=== PATIENT | female | born 1965 | race Caucasian/White ===

== ENCOUNTER 2019-12-19 08:16 | Outpatient (CLI) | payer MEDICAID, SELFPAY ==
--- NOTE | 2019-12-19 08:23 | MM_ITS ---
WS: [id number] BILATERAL DIGITAL SCREENING MAMMOGRAPHY WITH CAD CLINICAL INFORMATION: SCREEN HISTORY: Screening mammogram. No current complaints. COMPARISON: TECHNIQUE: Bilateral CC and MLO views. FINDINGS: Scattered fibroglandular densities bilaterally. No suspicious focal mass, asymmetry, calcifications, or architectural distortion. No evidence of malignancy. MM/[id number] IMPRESSION: BI-RADS: 1-Negative FOLLOW UP: 1 Year Follow-up Recommend return to annual screening mammography.
== END 2019-12-19 08:17 | disposition home or self-care (01) ==
LOC: RADSHAW 08:16
PROVIDERS: PCP Physician Assistant; Visit Provider Physician Assistant
DX: Z12.31 Encounter for screening mammogram for malignant neoplasm of breast (principal)
CPT/HCPCS: 77067

== ENCOUNTER 2021-01-26 08:14 | Outpatient (CLI) | payer MEDICAID, SELFPAY ==
--- NOTE | 2021-01-26 08:19 | MM_ITS ---
WS: [id number] Exam: [id number] Date/Time of Exam: 01/26/2021 8:47 AM Reason For Exam: SCREENING VIEWS: MLO and CC views both breasts. Comparison made with prior exam of 10/10/2014, 10/28/2017 and 12/19/2019. Findings: There was no sign of mass, architectural distortion or suspicious calcification in either breast. Sc attered fibroglandular densities MM/[id number] Impression: BI-RADS: 2-Benign FOLLOW-UP: 1 Year Follow-up This mammogram was also analyzed by the Computer Aided Detection System R2 Imag e Nut Grinder.
== END 2021-01-26 08:15 | disposition home or self-care (01) ==
PROVIDERS: PCP Physician Assistant; Visit Provider Physician Assistant
DX: Z12.31 Encounter for screening mammogram for malignant neoplasm of breast (principal)
CPT/HCPCS: 77067

== ENCOUNTER 2022-03-15 07:32 | Outpatient (CLI) | payer MEDICAID, SELFPAY ==
--- NOTE | 2022-03-15 07:38 | MM_ITS ---
WS: [id number] Bilateral screening 3D tomosynthesis digital mammogram, 03/15/2022 Clinical Data: SCREENING Comparison: 01/26/2021, 12/19/2019, 11/09/2018, 10/28/2017, 10/22/2016, 10/14/2015, 10/10/2014, 09/03/2013, 08/04, 06/20/2009. Findings: The breast parenchymal pattern shows fibroglandular tissue No spiculated masses or clustered calcific ations are seen. There are no secondary signs of carcinoma. MM/[place] [id number] Impression: 1. Negative bilateral mammogram unchanged. 2. Recommend annual screening mammograms. BIRADS: 1-Negative FOLLOW UP: 1 Year Follow-up The CAD fruit checker was used.
== END 2022-03-15 07:33 | disposition home or self-care (01) ==
LOC: RAD 07:32
PROVIDERS: PCP Physician Assistant; Visit Provider Physician Assistant
DX: Z12.31 Encounter for screening mammogram for malignant neoplasm of breast (principal)
CPT/HCPCS: 77063; 77067

== ENCOUNTER → 2022-03-18 09:48 | Outpatient (BNVA) | payer MEDICAID, SELFPAY | PROVIDERS: PCP Physician Assistant; Visit Provider Internal Medicine Cardiovascular Disease | DX: I10 Essential (primary) hypertension (principal); E78.5 Hyperlipidemia, unspecified; Z87.891 Personal history of nicotine dependence | CPT/HCPCS: 93005; 99214 ==

== ENCOUNTER → 2023-03-17 11:17 | Outpatient (BNVA) | payer MEDICAID, SELFPAY | PROVIDERS: PCP Physician Assistant; Visit Provider Internal Medicine Cardiovascular Disease | DX: R07.89 Other chest pain (principal); E78.5 Hyperlipidemia, unspecified; I10 Essential (primary) hypertension; R00.2 Palpitations; Z87.891 Personal history of nicotine dependence | CPT/HCPCS: 99214 ==

== ENCOUNTER 2023-03-22 08:15 | Outpatient (CLI) | payer MEDICAID, SELFPAY ==
--- NOTE | 2023-03-22 08:50 | MM_ITS ---
WS: [id number] Bilateral screening 3D tomosynthesis digital mammogram, 03/22/2023 Clinical Data: SCREEN Comparison: 03/15/2022, 01/26/2021, 12/19/2019, 11/09/2018, 10/28/2017, 10/22/2016, 10/14/2015, 10/10/2014, , 08/31/2012, 06/20/2009. Findings: The breast parenchymal pattern shows fibroglandular tissue. No spiculated masses or clustered calcifi cations are seen. There are no secondary signs of carcinoma. Impression: 1. Negative bilateral mammogram unchanged. 2. Recommend annual screening mammograms. MM/[id number] BIRADS: 1-Negative FOLLOW UP: 1 Year Follow-up The CAD material checker was used.
== END 2023-03-22 08:16 | disposition home or self-care (01) ==
LOC: RAD 08:16
PROVIDERS: PCP Physician Assistant; Visit Provider Physician Assistant
DX: Z12.31 Encounter for screening mammogram for malignant neoplasm of breast (principal)
CPT/HCPCS: 77063; 77067

== ENCOUNTER → 2024-03-19 11:06 | Outpatient (BNVA) | payer MEDICAID, SELFPAY | PROVIDERS: PCP Physician Assistant; Visit Provider Internal Medicine Cardiovascular Disease | DX: E78.5 Hyperlipidemia, unspecified (principal); E11.69 Type 2 diabetes mellitus with other specified complication; I10 Essential (primary) hypertension; Z87.891 Personal history of nicotine dependence; R00.2 Palpitations | CPT/HCPCS: 99214 ==

== ENCOUNTER 2024-04-02 08:08 | Outpatient (CLI) | payer MEDICAID, SELFPAY ==
--- NOTE | 2024-04-02 08:13 | MM_ITS ---
WS: [id number] Bilateral screening 3D tomosynthesis digital mammogram, 04/02/2024 8:16 AM Clinical Data: SCREENING Comparison: 03/21/2023, 03/15/2022, 01/26/2021, 12/19/2019, 11/09/2018, 10/28/2017, 10/22/2016, 10/14/2015, 10/10/2014, 09/03/2012, 06/20/2009. Findings: No spiculated masses or clustered calcifications are seen. There are no secondary signs of carcinoma . MM/MM scr [place] tomosynthesis [id number] Impression: Negative bilateral mammogram unchanged. Recommend annual screening mammograms. BIRADS: 1 - Negative. FOLLOW UP: 1 Year Follow-up DENSITY: There are scattered areas of fibroglandular density. The CAD purchase order checker was used
== END 2024-04-02 08:09 | disposition home or self-care (01) ==
LOC: RAD 08:08
PROVIDERS: PCP Physician Assistant; Visit Provider Physician Assistant
DX: Z12.31 Encounter for screening mammogram for malignant neoplasm of breast (principal); R92.323 Mammographic fibroglandular density, bilateral breasts
CPT/HCPCS: 77063; 77067

== ENCOUNTER → 2025-03-18 12:12 | Outpatient (BNVA) | payer MEDICAID, SELFPAY | PROVIDERS: PCP Physician Assistant; Visit Provider Internal Medicine Cardiovascular Disease | DX: I48.0 Paroxysmal atrial fibrillation (principal); R00.2 Palpitations; I10 Essential (primary) hypertension; E78.5 Hyperlipidemia, unspecified; Z87.891 Personal history of nicotine dependence; R07.9 Chest pain, unspecified; I49.8 Other specified cardiac arrhythmias | CPT/HCPCS: 93005; 99214 ==